=== PATIENT | male | born 1990 | race African-American/Black ===

== ENCOUNTER 2020-03-03 15:10 | Emergency (ER) | payer OTHER ==
[~2020-03-03] VITALS: Ht 182.9 cm; Wt 87.4 kg
[2020-03-03 15:11] VITALS: BP 139/73
--- NOTE | 2020-03-29 14:05 | REP ---
RIGHT THIRD DIGIT RADIOGRAPHS CLINICAL: Trauma. TECHNIQUE: AP, lateral, bilateral oblique views of the right third digit. FINDINGS: Lateral view breast demonstrates posterior dislocation at the distal interphalangeal joint level. No obvious fracture. IMPRESSION: Posterior dislocation at the distal interphalangeal (DIP) joint. MTDD
== END 2020-03-03 16:09 | disposition home or self-care (01) ==
LOC: M ED 15:10
DX: S63.282A Dislocation of proximal interphalangeal joint of right middle finger, initial encounter (principal); Y92.830 Public park as the place of occurrence of the external cause; Y93.64 Activity, baseball; Y99.9 Unspecified external cause status

== ENCOUNTER → 2020-07-04 | Outpatient (REF) | payer OTHER ==
[2020-07-04 11:08] LABS: SEMEN APPEARANCE OPAQUE (OPAQUE)
[2020-07-04 11:09] LABS: SEMEN VISCOSITY LIQUID (LIQUID); SEMEN VOLUME 1.1 ml (2.0-5.0); SPERM CONCENTRATION 28.2 M/ml (>=15.0); WBC CONCENTRATION <=1 M/ml (<=1 M/ml)
== END ==
LOC: M LAB REF 09:25
PROVIDERS: ATTEND Obstetrics & Gynecology
DX: N46.8 Other male infertility (principal)